=== PATIENT | female | born 1955 | race Caucasian/White ===

== ENCOUNTER → 2019-03-28 17:03 | Outpatient (CLI) | payer MEDICARE, OTHER, SELFPAY ==
--- NOTE | 2019-03-28 17:11 | DI.MRI.S_ITS ---
PROCEDURE: MR KNEE RT WO CON INDICATIONS: Right knee pain TECHNIQUE: Noncontrast sagittal PD fast spin echo and T2 fast spin echo with fat saturation, sagittal 3-D FLASH with fat saturation; coronal T1 spin echo and PD fast spin echo with fat saturation, and axial PD fast spin echo with fat saturation through the knee. COMPARISON: None. FINDINGS: Image quality: Excellent. Menisci: The complex tear involving posterior horn of medial meniscus is seen extending to superior and inferior articulating surfaces. Peripheral displacement of medial meniscus is seen bony medial collateral ligament. No evidence of focal lateral meniscal tear. The meniscal root ligaments appear intact. Cruciate ligaments: The anterior and posterior cruciate ligaments appear intact. Medial structures: There is low-grade MCL sprain/partial thickness tear.. The posterior oblique ligament, semimembranosus tendon insertions, oblique popliteal ligament, and meniscocapsular junction appear intact. Visualized portions of the pes anserinus tendons appear normal. No abnormal bursal fluid. Lateral structures: The lateral collateral ligament, long and short heads of the biceps femoris tendon appear intact. The popliteus tendon appears normal; the popliteofibular ligament appears intact. The posterosuperior and anteroinferior popliteomeniscal fascicles appear intact. The arcuate and fabellofibular ligaments appear intact, on either side of the lateral inferior geniculate artery. Iliotibial band appears normal. Anterior structures: The quadriceps and patellar tendons appear intact. Patellar alignment is normal. No femoral trochlear dysplasia or ventral trochlear prominence. No edema in the infrapatellar fat pad. 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 No fracture or dislocation. Articulating cartilages in the lateral femoral tibial compartment and patellofemoral compartment are grossly intact. Joint space: There is moderate amount of joint fluid. Small popliteal cyst is seen. Normal appearing synovial plicae are incidentally noted. IMPRESSION: 1. Complex tear involving posterior horn of medial meniscus extending to superior and inferior articulating surfaces. No focal lateral meniscal tear. 2. Low-grade MCL sprain/partial thickness tear. Cruciate ligaments are intact. 3. 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 Moderate amount of joint fluid, no gross loose body. Small popliteal cyst. Dictated by: Miah Kirby M.D. on 03/29/2019 at 10:17 Approved by: Miah Kirby M.D. on 03/29/2019 at 10:29
== END ==
PROVIDERS: Visit Provider Orthopaedic Surgery
DX: M25.561 Pain in right knee (principal); S83.231A Complex tear of medial meniscus, current injury, right knee, initial encounter; S83.411A Sprain of medial collateral ligament of right knee, initial encounter; M17.11 Unilateral primary osteoarthritis, right knee; M94.261 Chondromalacia, right knee; M25.461 Effusion, right knee; M71.21 Synovial cyst of popliteal space [Baker], right knee
CPT/HCPCS: 73721

== ENCOUNTER → 2023-01-13 16:39 | Outpatient (CLI) | payer MEDICARE, OTHER, SELFPAY ==
[2023-01-13 17:39] LABS: Hematocrit 39.5 % (36-46); Hemoglobin 13.3 g/dL (12.0-16.0); Mean Corpuscular HGB Conc 33.7 % (30-36); Mean Corpuscular Hemoglobin 29.9 PG (26-34); Mean Corpuscular Volume 88.6 fL (80-100); Platelet Count 366 X10^3/uL (150-400); Red Blood Cell Count 4.46 X10^6/uL (4.0-5.2); Red Cell Distribution Width 14.3 % (11.6-14.8); White Blood Cell Count 7.7 X10^3/uL (4.5-11.0)
[2023-01-13 17:53] LABS: Alanine Aminotransferase 28 IU/L (<35); Albumin 4.4 g/dL (3.5-5.0); Albumin Globulin Ratio 1.4 (1.0-2.8); Alkaline Phosphatase 60 U/L (38-126); Aspartate Aminotransferase 29 IU/L (14-36); BUN Creatinine Ratio 24.3 (6-22); Bilirubin Total 0.4 mg/dL (0.2-1.3); Blood Urea Nitrogen 18 mg/dL (7-17); Calcium 9.9 mg/dL (8.4-10.2); Carbon Dioxide 28 mmol/L (22-32); Chloride 103 mmol/L (98-107); Cholesterol 231 mg/dL (140-199); Estimated Glomerular Filt Rate > 60 mL/min (>60); Globulin 3.1 g/dL (1.7-4.1); Glucose 166 mg/dL (80-110); HDL Cholesterol 59 mg/dL (40-60); HEMOLYSIS 27 (0-50); LDL Cholesterol Calculated 122 mg/dL (<100); Potassium 4.5 mmol/L (3.4-5.1); Sodium 139 mmol/L (137-145); Total Protein 7.5 g/dL (6.3-8.2); Triglycerides 251 mg/dL (35-150)
[2023-01-13 18:23] LABS: TSH w/ Reflex to FT4 2.15 uIU/mL (0.47-4.68)
== END ==
PROVIDERS: PCP Internal Medicine; Referring Provider Internal Medicine; Visit Provider Internal Medicine
DX: E78.2 Mixed hyperlipidemia (principal); I10 Essential (primary) hypertension
CPT/HCPCS: 36415; 80053; 80061; 84443; 85027

== ENCOUNTER → 2024-05-13 15:36 | Outpatient (CLI) | payer MEDICARE, OTHER, SELFPAY ==
--- NOTE | 2024-05-13 15:39 | DI.MRI.S_ITS ---
PROCEDURE: MR SHOULDER RT WO CON INDICATIONS: Right shoulder pain TECHNIQUE: Noncontrast oblique coronal T2 fast spin echo with fat saturation, oblique sagittal T1 spin echo and T2 fast spin echo with fat saturation, axial T1 spin echo and T2 fast spin echo with fat saturation through the shoulder. COMPARISON: None. FINDINGS: Image quality: Excellent. Rotator cuff: Full-thickness rupture of distal supraspinatus at its insertion on the humeral head is seen with up to 3.7 cm medial retraction of torn tendon fibers to the level of acromion. Moderate grade articular surface partial-thickness tear involving distal infraspinatus at its insertion on the humeral head extending to musculotendinous junction. Low-grade intrasubstance partial-thickness tear involving distal subscapularis. Sagittal images demonstrate moderate supraspinatus muscle atrophy. Bones and bursae: There is superior migration of humeral head in relation to glenoid. No bone marrow contusions or fractures. [id number] acromioclavicular joint osteoarthritic changes are seen with joint space narrowing, subchondral sclerosis and downward osteophyte formation depressing the musculotendinous junction of supraspinatus. Type 2 acromion without an os acromiale. Small to moderate amount of joint effusion and subacromial subdeltoid bursal fluid is seen, no loose bodies. Capsule and soft tissues: There are signal abnormality and fraying involving superior anterior glenoid labrum suggestive of superior anterior labral tear. The long head of the biceps tendon appears thickened. IMPRESSION: 1. Full-thickness rupture of distal supraspinatus at its insertion on the humeral head with up to 3.7 cm medial retraction of torn tendon fibers to the level of acromion. Moderate supraspinatus muscle atrophy. 2. Moderate grade articular surface partial-thickness tear involving distal infraspinatus extending to musculotendinous junction. Low-grade intrasubstance partial-thickness tear involving distal subscapularis. 3. Mild to moderate acromioclavicular joint osteoarthritis. No fracture or dislocation. Superior migration of humeral head in relation to glenoid. Moderate joint effusion and subacromial subdeltoid bursal fluid, no loose bodies. 4. Suggestion of superior anterior glenoid labral tear. 5. Proximal long head of biceps tendinosis. Dictated by: Miah Kirby M.D. on 05/15/2024 at 13:32 Approved by: Miah Kirby M.D. on 05/15/2024 at 13:44
== END ==
PROVIDERS: PCP Internal Medicine; Referring Provider Orthopaedic Surgery; Visit Provider Orthopaedic Surgery
DX: M67.911 Unspecified disorder of synovium and tendon, right shoulder (principal); M67.921 Unspecified disorder of synovium and tendon, right upper arm; M75.121 Complete rotator cuff tear or rupture of right shoulder, not specified as traumatic; M62.511 Muscle wasting and atrophy, not elsewhere classified, right shoulder; M75.111 Incomplete rotator cuff tear or rupture of right shoulder, not specified as traumatic; M19.011 Primary osteoarthritis, right shoulder; M25.411 Effusion, right shoulder
CPT/HCPCS: 73221

== ENCOUNTER → 2024-10-04 08:07 | Outpatient (CLI) | payer MEDICARE, OTHER, SELFPAY ==
[2024-10-04 08:49] LABS: Hemoglobin A1C% w Est Avg Glu 6.9 % (4.0-6.0)
[2024-10-04 09:03] LABS: Blood Urea Nitrogen 17 mg/dL (7-17); Calcium 8.9 mg/dL (8.4-10.2); Carbon Dioxide 27 mmol/L (22-32); Chloride 106 mmol/L (98-107); Cholesterol 218 mg/dL (140-199); Estimated Glomerular Filt Rate > 60 mL/min (>60); Glucose 126 mg/dL (70-99); HDL Cholesterol 57 mg/dL (40-60); HEMOLYSIS < 15 (0-50); Potassium 4.3 mmol/L (3.4-5.1); Sodium 140 mmol/L (137-145); Triglycerides 130 mg/dL (35-150)
== END ==
PROVIDERS: PCP Internal Medicine; Referring Provider Internal Medicine; Visit Provider Internal Medicine
DX: R73.01 Impaired fasting glucose (principal); I10 Essential (primary) hypertension; E78.2 Mixed hyperlipidemia
CPT/HCPCS: 36415; 80048; 80061; 83036; 84450